=== PATIENT | female | born 1985 | race Caucasian/White ===

== ENCOUNTER 2024-08-17 22:45 | Outpatient (CLI) | payer OTHER, SELFPAY | END 2024-08-17 22:46 | disposition home or self-care (01) | LOC: AMB 08-29 14:09 | PROVIDERS: Visit Provider Family Medicine | DX: S89.91XA Unspecified injury of right lower leg, initial encounter (principal); S89.92XA Unspecified injury of left lower leg, initial encounter; V47.0XXA Car driver injured in collision with fixed or stationary object in nontraffic accident, initial encounter; Y92.411 Interstate highway as the place of occurrence of the external cause | CPT/HCPCS: A0425; A0429 ==

== ENCOUNTER 2024-08-17 23:19 | Emergency (ER) | payer OTHER, SELFPAY ==
[2024-08-17 23:21] VITALS: BP 121/78; PULSE 86; O2SAT 99
[2024-08-17 23:22] VITALS: BP 119/70; PULSE 87; O2SAT 100
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
[2024-08-17 23:23] VITALS: PULSE 86; RESP 12; O2SAT 100
[2024-08-17 23:27] VITALS: O2SAT 98
[2024-08-17 23:31] VITALS: BP 119/70; PULSE 98; RESP 20; TEMP 37.1; O2SAT 94; BMI 20.7
[2024-08-17 23:40] LABS: Basophils Absolute Auto 0.02 K/uL (0.00-0.30); Basophils Percent Auto 0.4 % (0.0-3.0); Eosinophils Absolute Auto 0.03 K/uL (0.00-0.50); Eosinophils Percent Auto 0.6 % (0.0-7.0); Hematocrit 40.4 % (33.0-51.0); Hemoglobin* 13.5 gm/dL (12.0-16.0); Immature Granulocytes Abs Auto 0.02 K/uL (0.00-0.30); Immature Granulocytes Pct Auto 0.4 %; Lymphocytes Absolute Auto 1.74 K/uL (0.90-2.90); Lymphocytes Percent Auto 36.6 % (20-44); Mean Corpuscular HGB Conc 33 gm/dL (32-36); Mean Corpuscular Hemoglobin 29 pg (26-34); Mean Corpuscular Volume 88 fL (80-100); Monocytes Percent Auto 9.9 % (0.0-11.0); Neutrophils Absolute Auto 2.48 K/uL (1.7-7.0); Neutrophils Percent Auto 52.1 % (42.0-72.0); Platelet Count* 225 K/uL (140-440); RDW Coefficient of Variation % 11.8 % (11.5-15.5); Red Blood Count 4.59 m/uL (4.00-5.20); White Blood Count* 4.76 K/uL (4.50-11.00)
[2024-08-17 23:41] LABS: Slide Review Reflex No
[2024-08-17 23:44] LABS: Albumin* 4.4 g/dL (3.3-5.0); Chloride* 102 mmol/L (96-114)
[2024-08-17 23:45] LABS: Potassium* 3.4 mmol/L (3.6-5.1); Sodium* 136 mmol/L (135-149)
[2024-08-17 23:47] LABS: Alkaline Phosphatase* 72 U/L (40-150); Anion Gap 12 mEq/L (7-15); Aspartate Amino Transferase* 22 U/L (12-35); Bilirubin Total* 0.5 mg/dL (0.1-1.5); Blood Urea Nitrogen* 12 mg/dL (5-24); Carbon Dioxide* 22 mmol/L (20-32); Creatinine* 0.7 mg/dL (0.5-1.5); Est. Creatinine Clearance* 86.18; Estimated Glomerular Filt Rate 113 ml/min; Glucose* 109 mg/dL (60-115); Total Protein* 6.7 g/dL (6.0-8.3)
[2024-08-17 23:48] LABS: Alanine Aminotransferase* 17 U/L (4-35); Calcium* 9.4 mg/dL (8.4-10.6)
[2024-08-17 23:56] VITALS: BP 104/66; PULSE 86; RESP 16; O2SAT 99
[2024-08-18 00:01] VITALS: BP 98/61; RESP 16
[2024-08-18 00:11] VITALS: BP 96/64
[2024-08-18 00:14] VITALS: BP 104/67
[2024-08-18 00:21] VITALS: BP 102/74; PULSE 79; RESP 16; TEMP 36.9; O2SAT 99
[2024-08-18 00:37] VITALS: TEMP 37.1
[2024-08-18] MEDS: KETOROLAC 15 MG/ML inj IVP (00:37)
--- OUTSIDE RECORDS SUMMARY | 2024-08-18 00:52 | XMS_ITS | Clinical Summary ---
Author Organization [facility] Address [address] [place] [address] Care Team Providers Care Card Cutter Name Role Phone Lyndsey Sandra PA-C Primary Care Provider Source Comments You are receiving this document as you are listed as the primary care provider,follow-up provider, or the patient has been referred to you for consultation.This is in compliance with the Medicare and[facility] Hospital[facility] EHR Incentive Program,which states Providers who transition their patient to another setting of careor provider of care or refers their patient to another provider of care shouldprovide summary care record for each transition of care or referral. [facility] Allergies No known active allergies Medications meclizine (ANTIVERT) 25 MG tablet Take 1 Tablet (25 mg) by mouth three times a day as needed. Last dispensed in 2018 90 Tablet 3 Active levothyroxine (SYNTHROID) 25 MCG tablet Take 1 Tablet (25 mcg) by mouth daily. 90 Tablet 2 4 Active CALCIUM-VITAMIN D OR Active probiotic (AKA SUPER PROBIOTIC) Take 2 Capsules by mouth daily. Active B Complex Vitamins (B COMPLEX-B12 TR OR) Active FLUoxetine (PROZAC) 20 MG capsuleIndicati ons:JEANETTE (generalized anxiety disorder) (HRC) Take 1 Capsule (20 mg) by mouth daily. 4 04/12/20 Active spironolactone (ALDACTONE) 50 MG tabletIndicatio ns:Acne vulgaris Take 1 Tablet (50 mg) by mouth daily. 90 Tablet 3 4 04/12/20 Active Active Problems Problem Noted Date Diagnosed Date JEANETTE (generalized anxiety disorder) 01/23/2024 Hypothyroidism 03/30/2023 H/O LEEP 10/13/2021 Overview (05/14/2024): [facility] Review: History: 09/2021 ASCUS HPV+ (other) 11/2021 [place] JUDE 2-3 03/2022 LEEP JUDE 2-3 03/2023 NILM HPV- 04/2024: LSIL HPV- Plan, per ASCCP guidelines: repeat pap with HPV co-test in 12 months (04/2025) PCOS (polycystic ovarian syndrome) 09/30/2021 Thyroiditis 09/30/2021 History of vitamin D deficiency 04/27/2019 Other chronic pain Immunizations Immunization Administration Dates Next Due 4vHPV (Gardasil) 12/27/2022,10/18/2022 9vHPV (Gardasil 9) 04/20/2023,12/27/2022, 023 DTP 03/03/1992, 0,1986,1986,1986,1986,1986 Flu Vac (3+ yrs) 04/07/2021 Fluzone Qiv Multidose Vial 0 .25 (6-35 Mos) 02/25/2019 HepB Adult (Engerix-B, 20+ y rs, 3 dose series) 10/10/1998,05/27/1998 HepB, Unspecified Formulation 10/10/1998, 999,05/27/1998 Hib, Unspecified Formulation 04/11/1990 Influenza (Flucelvax), Prese rv Free QIV 04/10/2023,04/01/2022,04/09/2020 Influenza IIV4 (Quadrivalent ) 0.5mL (02307) 04/07/2021,03/04/2019 Influenza ccIIV3 6 months+ (Flucelvax) 04/12/2024 Influenza, Unspecified Formulation 04/09/2020 Oscar COVID-19 Vaccine 10/04/2020 MCV4 (Menactra) 01/23/2008 MMR 07/23/1998,04/11/1990 MPSV4 (Menomune) 01/23/2008 Moderna COVID-19 12+ 04/10/2023 OPV, Trivalent (Orimune or tOPV) 987,1986,1986,1985 Pfizer Bivalent 12+ 04/01/2022 Pfizer COVID-19 12+ 04/25/2024 Pfizer Monovalent 12+ Purple Top 05/13/2021 Polio, Unspecified Formulation 03/03/1992,1989 TDAP (ADACEL) 11/20/2007 Td 05/27/1998 Td (7+ yrs) 05/27/1998 Tdap 01/10/2018,11/20/2007 Family History Medical History Relation Name Comments High Cholesterol Father Manuel Roldan Hypertension Father Manuel Roldan Heart Disease Maternal Grandfather Evan Rodríguez of Heart Attack Hypertension Maternal Grandfather Evan Rodríguez Diabetes, Type II Maternal Grandmother Tsering Jimenezzer Heart Disease Maternal Grandmother Tsering Meyer of Heart attack Hypertension Maternal Grandmother Tsering Meyer Cancer, Pancreatic Maternal Great-Grandfather Dementia Maternal Great-Grandmother Thyroid Disorder Maternal Great-Grandmother Diabetes Paternal Grandfather Gregory Type 1 diabetes- Great Grandfather Cancer Paternal Grandmother Eri Great G randmother- breast cancer but cause of unknown Diabetes Paternal Great-Grandfather Cancer, Breast Paternal Great-Grandmother Cancer, Stomach Paternal Great-Grandmother Relation Name Status Comments Father Manuel Roldan Alive Mother Alive Maternal Grandfather Evan Rodríguez Maternal Grandmother Tsering Meyer Maternal Great-Grandfather Maternal Great-Grandmother Paternal Grandfather Gregory Alive Paternal Grandmother Eri Paternal Great-Grandfather Paternal Great-Grandmother Social History Tobacco Use Types Packs/Day Years Used Date Smoking Tobacco: Never Passive Smoke Exposure: Past Smokeless Tobacco: Never Tobacco Cessation:Counseling Given: Not Answered Comments:I grew up with parents smoking in the house. (Occasional passive exposure) Alcohol Use Standard Drinks/Week Comments Not Currently 0 (1 standard drink = 0.6 oz pure alcohol) Very rarely I have 1 maybe 2 drinks a year if that. PHQ-2 Answer Date Recorded PHQ-2 Score 2 04/06/2024 Hunger Vital Sign Answer Date Recorded Within the past 12 months, y ou worried that your food would run out before you got the money to buy more. Never true 04/12/20 24 Within the past 12 months, t he food you bought just didn't last and you didn't have money to get more. Never true 04/12/2024 PRAPARE - Transportation Answer Date Re corded In the past 12 months, has l ack of transportation kept you from medical appointments or from getting medications? No 04/03 In the past 12 months, has l ack of transportation kept you from meetings, work, or from getting things needed for daily living? No 04/12/2024 Housing Stability Vital Sign Answer Cody e Recorded In the last 12 months, was t here a time when you were not able to pay the mortgage or rent on time? No 04/12/2024 In the past 12 months, how m any times have you moved where you were living? 0 04/12/2024 At any time in the past 12 m [facility], were you homeless or living in a correction (including now)? No 04/12/2024 Financial Resource Strain Answer Date R ecorded Is it hard for you to pay fo r the very basics like food, housing, medical care or heating? No 03/20/2023 Food Insecurity Answer Date Recorded Does your food run out before you have the money to buy more? No 03/20/2023 Transportation Needs Answer Date Record ed Does a lack of transportatio n keep you from your medical appointments or from getting your medications? No 023 Comments No Sex and Gender Information Value Date Recorded Sex Assigned at Female 09/28/2021 6:33 PM CDT Legal Sex Female 9:05 PM CDT Gender Identity Female 09/28/2021 6:33 PM CDT Sexual Orientation Straight 09/28/2021 6: 33 PM CDT Occupation Industry Job Start Date Job End Date [employer]/active job Not on file Not on file Not on file Last Filed Vital Signs Vital Sign Reading Time Taken Comments Blood Pressure 107/58 04/12/2024 10:34 AM CDT Pulse 81 04/12/2024 10:34 AM CDT Temperature 37.2 C (99 F) 11/06/2007 11:25 AM CDT C: 37.2 C Respiratory Rate - - Oxygen Saturation - - Inhaled Oxygen Concentration - - Weight 53.5 kg (118 lb) 04/12/2024 10:34 AM CDT Height 157.5 cm (5' 2) 04/12/2024 10:34 AM CDT Body Mass Index 21.58 04/12/2024 10:34 AM CDT Plan of Treatment Health Maintenance Due Date Last Done Comments Cervical Cancer Screening 04/12/20252023, 03/29/2023, 11/04/2021, Additional history exists Adult Preventive Visit 04/12/2026 , 03/29/2023, 09/30/2021 DTaP/Tdap/Td (9 - Tdap) 01/11/2028 01/11/20 18, 11/20/2007, 11/20/2007, Additional history exists Zoster/Shingles (1 of 2) 02/10/2036 Hib Completed 04/11/1990 IPV (Polio) Completed 03/03/1992, 03/1990, 1986, Additional history exists HepB Completed 10/10/1998, 03/1999, 07/23/1998, Additional history exists MCV4 Aged Out 01/23/2008, 01/23/2008 No lo nger eligible based on patient's age to complete this topic HIV Screening (Preventive Services) Completed 09/30/2021 (Completed), 01/11/2018 Hep C Screening (Preventive Services) Completed 03/29/2023 HPV Vaccine Completed 04/20/2023, 12/03, 12/27/2022, Additional history exists Influenza Completed 04/12/2024, 02/2023, 04/01/2022, Additional history exists COVID-19 Vaccine Completed 04/25/2024, 02/2023, 04/01/2022, Additional history exists HepA Aged Out No longer eligi ble based on patient's age to complete this topic Meningococcal B Aged Out No longer el igible based on patient's age to complete this topic Pneumococcal Aged Out No longer eligi ble based on patient's age to complete this topic Procedures Procedure Name Priority Date/Time Associated Diagnosis Comments PAP TEST Routine 04/12/2024 11:30 AM CDT Screening for malignant neoplasm of cervix HEPATITIS C ANTIBODY, WITH REFLEX Routine 03/29/2023 12:35 PM CDT Need for hepatitis C screening test from Last 3 Months or Most Recently Relevant to Health Maintenance Results * (ABNORMAL) PAP Test (04/12/2024 11:30 AM CDT) Case Report Pap Case: [id number] Authorizing Provider: Debbie Capellan APRN, Collected: 04/12/2024 1130 MANAGER PORT Ordering Location: [facility] Received: 04/12/2024 1141 First Screen: Arina Sue Pathologist: Jong Wei MD Specimen: Pap Test, Routine, Cervix/Endocervix 05/14/2024 8:23 AM [employer] Pap Specimen Adequacy Satisfactory for evaluation, endocervical/clements sformation zone component present. 05/14/2024 8:23 AM [facility] Pap Interpretation (LSIL) Low-grade squamous intraepithelial lesion, encompassing HPV/mild dysplasia/JUDE 1.(A) 05/14/2024 8:23 AM [facility] Pap Disclaimer The Pap test is a screening test to aid in the detection of cervical and vaginal cancers and their precursor lesions. It is not a diagnostic procedure and should not be used as the sole means of detecting malignancy. Both false-positive and false-negative results may occur. 05/14/2024 8:23 AM [facility] Gross Description The specimen is received in SurePath fixative and properly labeled. 1 Pap-stained SurePath slide is prepared. 05/14/2024 8:23 AM [facility] Embedded Images 8:23 AM [facility] Other Specimen Type ENTIRE ENDOCERVIX / Unknown 04/12/2024 11:30 AM CDT 04/12/2024 11:41 AM CDT Comment:LMP: No LMP recorded . Debbie Capellan APRN, CNP LAB PATHOLOGY Final Result Performing Organization Address [facility] Co de Phone Number [facility] [address] * Hepatitis C Antibody, with Reflex (03/29/2023 12:35 PM CDT) Hepatitis C Antibody Negative (Non Reactive) Negative (Non Reactive) 03/29/2023 5:32 PM CDT [facility] Comment:Antibodies to HCV no t detected. Does not exclude the possiblity of exposure to HCV. Blood Venipuncture / Unknown 03/29/2023 12:35 PM CDT 03/29/2023 12:35 PM CDT Debbie Capellan APRN, CNP LAB_1 Final Result Performing Organization Address [facility] de Phone Number [facility] [address] from Last 3 Months or Most Recently Relevant to Health Maintenance Insurance [employer] [id number] [place] [id number] [employer] Care Teams Card Cutter Relationship Specialty Start Date End Date Lyndsey Sandra PALindsayC [id number] [place] [place] [id number] PCP - General Physician Trial Manager 12/17/22
--- OUTSIDE RECORDS SUMMARY | 2024-08-18 00:52 | XMS_ITS | Clinical Summary ---
Author Organization [email or web address] [facility] Address [place], [place] [address] Care Team Providers Care Dice Table Operator Name Role Phone Pcp, No Primary Care Provider Unavailabl e Allergies No known active allergies Medications albuterol HFA (PRO-AIR; VENTOLIN; PROVENTIL) 90 mcg/actuation inhalerIndicati ons:Bronchospas m Inhale 1-2 Puffs by mouth every 4 hours if needed. 1 Each 1 Active ibuprofen (ADVIL; MOTRIN) 200 mg tablet Take 2-4 Tablets (400-800 mg) by mouth every 6 hours if needed for Pain (mild pain). 100 Tablet 2 Active meclizine (ANTIVERT) 25 mg tablet Take 25 mg by mouth 3 times daily if needed. Take 1 Tablet (25 mg) by mouth three times a day as needed. Last dispensed in 2018 3 Active levothyroxine (SYNTHROID) 25 mcg tablet Take 25 mcg by mouth once daily. 4 08/04/19 25 Active Problems Problem Noted Date Diagnosed Date Hypothyroidism 03/30/2023 H/O LEEP 10/13/2021 Overview (09/11/2023): CCSM Review: History: 09/2021 ASCUS, HPV+ (non 16/18) 11/2021 [place] JUDE 2-3 03/2022 LEEP, JUDE 2-3 03/2023 NILM, HPV- Plan, per ASCCP guidelines: repeat pap with HPV co-test in 12 months (03/2024) PCOS (polycystic ovarian syndrome) 09/30/2021 Thyroiditis 09/30/2021 History of vitamin D deficiency 04/27/2019 Immunizations Name Administration Dates Next Due COVID-19 vaccine ([employer]) PF, MDV COVID-19 vaccine ([employer] NTPharmAthene 30mcg/0.3mL) PF, MDV 05/13/2021 DTP 03/03/1992, 0,1986,09/03,1986 HPV 9 (Gardasil 9) 04/20/2023,12/27/2022, 023 Hepatitis B (Adult) 10/10/1998,05/27/1998 Hepatitis B, Unspecified 07/23/1998 Hib Conjugate, Unspecified 04/11/1990 Human Papilloma Virus Vaccine 12/27/2022, 023 Influenza Virus, Unspecified 04/07/2021,04/09/20 20 Influenza, IIV4 04/07/2021,03/04/2019 Influenza, IIV4 (=>6mos) MDV 02/25/2019 Influenza,CCIIV4 PRESERV FREE 04/10/2023, 022,04/09/2020 MMR 07/23/1998,04/11/1990 Meningococcal Vaccine (Menactra) 01/23/2008 Oral Polio Vaccine 1986,1986 Polio Virus, Unspecified 03/03/1992,04/11/1990 Td (Age >=7 Years) 05/27/1998 Tdap 01/10/2018,11/20/2007 Family History Medical History Relation Name Comments Heart attack Maternal Grandfather Anxiety disorder Sister Relation Name Status Comments Father Alive Maternal Grandfather Maternal Grandmother Alive Mother Alive Sister Alive Social History Tobacco Use Types Packs/Day Years Used Date Smoking Tobacco: Never Smokeless Tobacco: Never Tobacco Cessation:Counseling Given: Yes Alcohol Use Standard Drinks/Week Comments Not Currently 0 (1 standard drink = 0.6 oz pur e alcohol) very, very rarely PHQ-2 Answer Date Recorded PHQ-2 TOTAL SCORE 0 01/19/2022 Social Connections Answer Date Recorded Frequency of Communication with Friends and Fami ly Not on file 07/04/2021 Financial Resource Strain Answer Date R ecorded Difficulty of Paying Living Expenses Not on file 07/04/2021 Difficulty of Paying Living Expenses Not on file 07/04/2021 Comments No Sex and Gender Information Value Date Recorded Sex Assigned at Female 03/29/2020 9:13 AM CDT Legal Sex Female 7:05 AM [employer] Gender Identity Female 03/29/2020 9:13 AM CDT Sexual Orientation Straight 07/06/2020 9: 08 PM [employer] Obstetrics History Para Term AB IAB SAB Ectopic Multiple Livin g Live Births 1 0 0 Date Outcome GA Total Labor Labor/2nd/3rd Weight Sex Type Anes PTL Tesha A1 A5 Name Clin Comments No planned Last Filed Vital Signs Vital Sign Reading Time Taken Comments Blood Pressure 120/78 09/11/2023 5:54 PM CDT Pulse 87 09/11/2023 5:54 PM CDT Temperature 36.5 C (97.7 F) 09/11/2023 5:54 PM CDT Respiratory Rate 16 09/11/2023 5:54 PM CDT Oxygen Saturation 98% 09/11/2023 5:54 PM CDT Inhaled Oxygen Concentration - - Weight 51.3 kg (113 lb) 09/11/2023 5:54 PM CDT Height 157.5 cm (5' 2) 09/11/2023 5:54 PM CDT Body Mass Index 20.67 09/11/2023 5:54 PM CDT Plan of Treatment Health Maintenance Due Date Last Done Comments Depression screening for age 12+ 01/19/2023 01/19/2022, 01/24/2019, 01/10/2018, Additional history exists BMI (ht and wt on same day) for age 18+ 03/09/2023 03/09/2022, 01/19/2022, 04/26/2019, Additional history exists COVID-19 vaccine series ( season) 2024 04/10/2023, 04/01/2022, 05/13/2021, Additional history exists Influenza for age 9-49 03/04/2024 3, 04/01/2022, 04/07/2021, Additional history exists Pap test for age 21-65 11/15/2024 2 (Completed outside of [facility]), 01/10/2018 Tetanus booster 01/11/2028 01/10/2018, 11/01, 05/27/1998 Tdap Completed 01/10/2018, 11/20/2007 HIV for age 15-65 Completed 01/11/2018 Hepatitis C screening for age 18-79 Completed 01/11/2018 Pneumococcal series for age 6-49 Aged Out No longer eligible based on patient's age to complete this topic Procedures Procedure Name Priority Date/Time Associated Diagnosis Comments ANTI HIV 1/2 Routine 01/11/2018 1:08 PM CDT Screen for STD (sexually transmitted disease) ANTI HCV Routine 01/11/2018 1:08 PM CDT Screen for STD (sexually transmitted disease) HAND LASTER THIN PREP PAP SCREEN IMAGED Routine 01/10/2018 11:19 AM CDT Screening for malignant neoplasm of cervix from Last 3 Months or Most Recently Relevant to Health Maintenance Results * ANTI HCV (01/11/2018 1:08 PM CDT) HEPATITIS C ANTIBODY Non-React nima Non-React nima 01/11/2018 8:08 PM CDT [facility] Comment:Antibodies to HCV no t detected; does not exclude the possibility of exposure to HCV. Blood BLOOD SPECIMEN / Unknown Venipuncture / Unknown 01/11/2018 1:08 PM CDT 01/11/2018 1:09 PM CDT us Cindy VILLAVICENCIO SEND OUTS Final Result [facility] [address] [place] [address], [place] * ANTI HIV 1/2 (01/11/2018 1:08 PM CDT) HIV-1/HIV-2 ANTIBODY Non-Reacti ve Non-Reacti ve 01/11/2018 8:05 PM CDT [facility] Comment:HIV-1 p24 and HIV-1/ HIV-2 Ab not detected. Blood BLOOD SPECIMEN / Unknown Venipuncture / Unknown 01/11/2018 1:08 PM CDT 01/11/2018 1:09 PM CDT us Cindy Joshi PA SEND OUTS Final Result [facility] [address] [place] [address], [place] * HAND LASTER THIN PREP PAP SCREEN IMAGED [[id number]] (01/10/2018 11:19 AM CDT) Case Report Gynecologic Cytology Report Case: [id number] Authorizing Provider: Cindy Joshi, Collected: 01/10/2018 1119 PA Ordering Location: [facility] Received: 01/10/2018 1120 Clinic First Screen: Martha Bundy Specimen: HAND LASTER ThinPrep Vial Screening, Cervical 01/17/2018 6:55 PM CDT [facility] INTERPRETATION/ RESULT NEGATIVE FOR INTRAEPITHELIAL LESION OR MALIGNANCY (NIL) (none) 01/17/2018 6:55 PM CDT [facility] IMEN ADEQUACY Satisfactory for evaluation Endocervical component present 01/17/2018 6:55 PM CDT [facility] HPV REQUEST HPV if ASCUS 01/17/2018 6:55 PM CDT [facility] Date of LMP 12/17/2017 01/17/2018 6:55 PM CDT [facility] Last Pap Date unsure 01/17/2018 6:55 PM CDT [facility] Last Pap Result First Pap/Unknown 6:55 PM CDT [facility] Abnormal Pap or [place] Bx in last 5 years No 01/17/2018 6:55 PM CDT [facility] Menstrual Status Regular Periods 01/17/2018 6:55 PM CDT [facility] [place] Bx Done Today No 01/17/2018 6:55 PM CDT [facility] Additional Information None given 01/17/2018 6:55 PM CDT [facility] Automated Review Successful 01/17/2018 6:55 PM CDT [facility] Comment:Specimen processed s uccessfully by automated flight software test engineer device, ThinPrep Imaging System, [employer] Note The pap test is a screening technique, not a diagnostic procedure. It is used primarily to screen for squamous cancers and precursor lesions. Published studies have shown that it is subject to both false negative and false positive results. The pap test should not be used as the sole means to diagnose or exclude pre-malignant and malignant lesions. Cytology is screened and interpreted at [facility] - [address], [place] [address] and [facility] - [address]; [place] [address] and [facility] - [address]; [place] [address] and [facility] [address]; [place] [address] 01/17/2018 6:55 PM CDT [facility] Other (Cervical) Non-Blood / Unknown 01/10/2018 11:19 AM CDT 01/10/2018 11:20 AM CDT us Cindy VILLAVICENCIO PATHOLOGY/CYTOLOGY nal Result [facility] [address] [place] [address], [place] from Last 3 Months or Most Recently Relevant to Health Maintenance Insurance [id number] [place] [id number] [id number] [place] [id number] * Guarantor: SUE SUAREZ Account Type Relation to Patient Date of Phone Billing Address Personal/Family 1949 [phone] [place] [id number] Advance Directives * Full Code (Latest Code Status on File) Date Activated Date Inactivated Comments 03/11/2022 9:55 AM 03/11/2022 5:30 PM Question Answer Comments Code Status Discussion: Reviewed Preferences Care Teams Dice Table Operator Relationship Specialty Start Date End Date Pcp, No . PCP - General 01/12/22
[2024-08-18 00:55] LABS: Appearance Urine Clear (Clear); Bilirubin Urine Negative (Negative); Blood Urine 2+ (Negative); Color Urine Yellow (Yellow); Glucose Urine Negative (Negative); Ketones Urine Negative (Negative); Leukocyte Esterase Urine Negative (Negative); Nitrite Urine Negative (Negative); Protein Urine Negative (Negative); Urobilinogen Urine 0.2 (0.2-1.0)
[2024-08-18 01:03] LABS: RBC Urine 0-2 (0-2); WBC Urine 0-2 (0-5)
== END 2024-08-18 01:01 | disposition home or self-care (01) ==
PROVIDERS: Emergency Provider Family Medicine
DX: S09.90XA Unspecified injury of head, initial encounter (principal); S80.811A Abrasion, right lower leg, initial encounter; R10.32 Left lower quadrant pain; V49.9XXA Car occupant (driver) (passenger) injured in unspecified traffic accident, initial encounter
CPT/HCPCS: 36415; 70450; 71260; 72125; 73560; 73590; 74177; 80053; 81001; 85025; 93005; 94761; 96374; 99285; 99291; G0390; J1885; Q9967